=== PATIENT | male | born 1950 | race Caucasian/White ===

== ENCOUNTER 2020-05-08 09:33 | Day surgery (SDC) | payer OTHER ==
[2020-05-07 11:30] LABS: ALBUMIN 3.9 G/DL (3.4-5.0); ANION GAP 8 (8-16); BLOOD UREA NITROGEN 15 MG/DL (7-18); BUN/CREATININE RATIO 13.9 (5.4-32.0); CHLORIDE 105 MMOL/L (99-107); CREATININE 1.08 MG/DL (0.60-1.10); GLUCOSE 196 MG/DL (70-104); POTASSIUM 4.3 MMOL/L (3.5-5.1); SODIUM 141 MMOL/L (135-145); TOTAL CARBON DIOXIDE 27.7 MMOL/L (24-32); eGFR 67 ML/MIN
[2020-05-07 11:51] LABS: BASOPHILS # (AUTO) 0.1 X10'3 (0-0.2); EOSINOPHILS # (AUTO) 0.2 X10'3 (0-0.9); EOSINOPHILS % (AUTO) 2.3 % (0-6); HEMATOCRIT 43.5 % (42.0-52.0); LYMPHOCYTES # (AUTO) 2.5 X10'3 (1.1-4.8); LYMPHOCYTES % (AUTO) 30.3 % (21-51); MEAN CORPUSCULAR HEMOGLOBIN 31.6 PG (27.0-31.0); MEAN CORPUSCULAR HGB CONC 34.6 g/dL (33.0-36.5); MEAN CORPUSCULAR VOLUME 91.2 FL (78-98); MEAN PLATELET VOLUME 9.9 FL (7.4-10.4); MONOCYTES # (AUTO) 0.7 X10'3 (0-0.9); MONOCYTES % (AUTO) 8.1 % (2-12); NEUTROPHILS # (AUTO) 4.7 X10'3 (1.8-7.7); NEUTROPHILS % (AUTO) 58.3 % (42-75); PLATELET COUNT 148 X10'3 (140-440); RED BLOOD COUNT 4.77 X10'6 (4.70-6.10); RED CELL DISTRIBUTION WIDTH 13.5 % (11.5-14.5); WHITE BLOOD COUNT 8.1 X10'3 (4.5-11.0)
[2020-05-08] VITALS (15 sets, daily range): BP systolic 105–146; BP diastolic 64–81
[~2020-05-08] VITALS: Ht 177.8 cm; Wt 99.2 kg
[2020-05-08] MEDS ORDERED: amiodarone 150mg/dext, iso-os 100 ML IV ONE (09:55)
[2020-05-08] MEDS ORDERED: normal saline 1000ml 1,000 ML IV SCH (09:55)
[2020-05-08] MEDS ORDERED: MIDAZolam 1mg/ml 10ml vial IV ONE (09:55)
[2020-05-08] MEDS ORDERED: morphine 10mg/ml inj. IV ONE (09:55)
[2020-05-08] MEDS ORDERED: atropine 0.1mg/ml 10ml syringe IV ONE (09:55)
[2020-05-08] MEDS ORDERED: diphenhydrAMINE 25mg capsule PO ONE (09:55)
[2020-05-08] MEDS ORDERED: LORazepam 0.5 MG tablet PO ONE (09:55)
[2020-05-08] MEDS ORDERED: INSU100V37 SQ (10:08)
[2020-05-08] MEDS ORDERED: CYAN250014 PO (10:08)
[2020-05-08] MEDS ORDERED: ATOR40TA PO (10:08)
[2020-05-08] MEDS ORDERED: OMEG-133 PO (10:08)
[2020-05-08] MEDS ORDERED: OMEP40CA13 PO (10:08)
[2020-05-08] MEDS ORDERED: UBID100C16 PO (10:08)
[2020-05-08] MEDS ORDERED: LOSA25TA96 PO (10:08)
== END 2020-05-08 14:30 | disposition home or self-care (01) ==
LOC: SSTAY O 09:33
PROVIDERS: ATTEND Internal Medicine Cardiovascular Disease
DX: I48.0 Paroxysmal atrial fibrillation (principal); E11.9 Type 2 diabetes mellitus without complications; I10 Essential (primary) hypertension; E78.5 Hyperlipidemia, unspecified; F20.9 Schizophrenia, unspecified; F17.291 Nicotine dependence, other tobacco product, in remission; Z79.899 Other long term (current) drug therapy; Z86.19 Personal history of other infectious and parasitic diseases; Z82.49 Family history of ischemic heart disease and other diseases of the circulatory system
CPT/HCPCS: 36415; 80048; 82948; 85025; 92960; 93005; 94760; 94799; J2250; J2270; J7030

== ENCOUNTER 2020-09-04 09:09 | Emergency (ER) | payer OTHER, MEDICARE ==
[~2020-09-04] VITALS: Ht 177.8 cm; Wt 93.6 kg
[~2020-09-04 09:09] MED LIST: ATOR40TA PO; CYAN250014 PO; INSU100V37 SQ; LOSA25TA96 PO; OMEG-133 PO; OMEP40CA13 PO; UBID100C16 PO
--- NOTE | 2020-09-04 09:40 | NUR ---
Zachary, , cell phone # [phone]
--- NOTE | 2020-09-04 09:50 | NUR ---
Pt states symptoms are "exactly" the same as when he is in atrial fibrillation. Denies any new or differing symptoms.
[2020-09-04 09:52] LABS: BASOPHILS # (AUTO) 0.1 X10'3 (0-0.2); BASOPHILS % (AUTO) 0.9 % (0-1); EOSINOPHILS # (AUTO) 0.2 X10'3 (0-0.9); HEMATOCRIT 43.2 % (42.0-52.0); HEMOGLOBIN 15.1 g/dl (14.0-17.9); LYMPHOCYTES # (AUTO) 1.7 X10'3 (1.1-4.8); LYMPHOCYTES % (AUTO) 24.9 % (21-51); MEAN CORPUSCULAR HEMOGLOBIN 32.3 PG (27.0-31.0); MEAN CORPUSCULAR HGB CONC 34.9 g/dL (33.0-36.5); MEAN CORPUSCULAR VOLUME 92.4 FL (78-98); MEAN PLATELET VOLUME 10.2 FL (7.4-10.4); MONOCYTES # (AUTO) 0.6 X10'3 (0-0.9); MONOCYTES % (AUTO) 9.1 % (2-12); NEUTROPHILS # (AUTO) 4.3 X10'3 (1.8-7.7); NEUTROPHILS % (AUTO) 62.1 % (42-75); PLATELET COUNT 135 X10'3 (140-440); RED BLOOD COUNT 4.68 X10'6 (4.70-6.10); RED CELL DISTRIBUTION WIDTH 13.8 % (11.5-14.5); WHITE BLOOD COUNT 6.9 X10'3 (4.5-11.0)
[2020-09-04 10:04] LABS: PARTIAL THROMBOPLASTIN TIME 34 SECONDS (22-32)
[2020-09-04 10:06] LABS: ALANINE AMINOTRANSFERASE 22 U/L (12-78); ALBUMIN 3.9 G/DL (3.4-5.0); ALBUMIN/GLOBULIN RATIO 1.1 (1.1-1.5); ALKALINE PHOSPHATASE 51 IU/L (46-116); ANION GAP 9 (8-16); ASPARTATE AMINO TRANSFERASE 23 U/L (10-37); BLOOD UREA NITROGEN 13 MG/DL (7-18); BUN/CREATININE RATIO 12.9 (5.4-32.0); CALCIUM 9.1 MG/DL (8.5-10.1); CHLORIDE 105 MMOL/L (99-107); CREATININE 1.01 MG/DL (0.60-1.10); GLUCOSE 291 MG/DL (70-104); POTASSIUM 4.2 MMOL/L (3.5-5.1); SODIUM 141 MMOL/L (135-145); TOTAL PROTEIN 7.5 G/DL (6.4-8.2); eGFR 73 ML/MIN
[2020-09-04 10:13] LABS: MAGNESIUM 1.8 MG/DL (1.5-2.4)
[2020-09-04 10:27] LABS: D-DIMER 0.43 MG/L FEU (0-0.50)
[2020-09-04] MEDS ORDERED: midazolam 1 mg/ML 2ml injection IV ONE (10:40)
[2020-09-04] MEDS ORDERED: etomidate 2mg/ml inj. IV ONE (10:45)
[2020-09-04] MEDS ORDERED: fentaNYL/PF 50MCG/1 ML 2ML syringe IV PRN (10:45)
[2020-09-04] MEDS ORDERED: normal saline 1000ML IV soln IVB ONE (10:50)
[2020-09-04] MEDS ORDERED: normal saline 1000ml 1,000 ML IV ONE (10:50)
[2020-09-04 12:57] VITALS: BP 149/79
== END 2020-09-04 13:15 | disposition home or self-care (01) ==
LOC: ER 09:10
DX: I48.91 Unspecified atrial fibrillation (principal); R00.2 Palpitations; R06.02 Shortness of breath; R53.83 Other fatigue; E11.9 Type 2 diabetes mellitus without complications; F17.200 Nicotine dependence, unspecified, uncomplicated; Z98.890 Other specified postprocedural states; Z79.899 Other long term (current) drug therapy; Z79.4 Long term (current) use of insulin
CPT/HCPCS: 36415; 71045; 80053; 83735; 83880; 84443; 84484; 85025; 85379; 85610; 85730; 92960; 93005; 96361; 96374; 96375; 99291; J2250; J3010; J7030

== ENCOUNTER 2020-10-23 10:20 | Day surgery (SDC) | payer OTHER ==
[2020-10-22 12:29] LABS: BASOPHILS # (AUTO) 0.1 X10'3 (0-0.2); BASOPHILS % (AUTO) 1.1 % (0-1); EOSINOPHILS # (AUTO) 0.2 X10'3 (0-0.9); EOSINOPHILS % (AUTO) 2.7 % (0-6); HEMATOCRIT 43.3 % (42.0-52.0); HEMOGLOBIN 14.9 g/dl (14.0-17.9); LYMPHOCYTES # (AUTO) 1.8 X10'3 (1.1-4.8); LYMPHOCYTES % (AUTO) 24.5 % (21-51); MEAN CORPUSCULAR HEMOGLOBIN 32.5 PG (27.0-31.0); MEAN CORPUSCULAR HGB CONC 34.4 g/dL (33.0-36.5); MEAN CORPUSCULAR VOLUME 94.4 FL (78-98); MEAN PLATELET VOLUME 10.8 FL (7.4-10.4); MONOCYTES # (AUTO) 0.6 X10'3 (0-0.9); MONOCYTES % (AUTO) 8.3 % (2-12); NEUTROPHILS # (AUTO) 4.6 X10'3 (1.8-7.7); NEUTROPHILS % (AUTO) 63.4 % (42-75); PLATELET COUNT 143 X10'3 (140-440); RED BLOOD COUNT 4.58 X10'6 (4.70-6.10); WHITE BLOOD COUNT 7.2 X10'3 (4.5-11.0)
[2020-10-22 12:36] LABS: ANION GAP 6 (8-16); BLOOD UREA NITROGEN 20 MG/DL (7-18); CALCIUM 9.3 MG/DL (8.5-10.1); CHLORIDE 104 MMOL/L (99-107); CREATININE 1.05 MG/DL (0.60-1.10); GLUCOSE 227 MG/DL (70-104); POTASSIUM 5.4 MMOL/L (3.5-5.1); SODIUM 138 MMOL/L (135-145); TOTAL CARBON DIOXIDE 28.1 MMOL/L (24-32); eGFR 69 ML/MIN
[2020-10-22 12:38] LABS: PARTIAL THROMBOPLASTIN TIME 26 SECONDS (22-32)
[~2020-10-23] VITALS: Ht 175.3 cm; Wt 95.4 kg
[2020-10-23] VITALS (11 sets, daily range): BP systolic 115–161; BP diastolic 48–86
[2020-10-23] MEDS ORDERED: diphenhydrAMINE 25mg capsule PO PRN (11:20)
[2020-10-23] MEDS ORDERED: LORazepam 0.5 MG tablet PO PRN (11:20)
[2020-10-23] MEDS ORDERED: normal saline 1,000 ML IV SCH ×2 (11:20→13:15)
[2020-10-23] MEDS ORDERED: LIDOcaine/PRILOcaine 5gm cream TP ONE (11:35)
[2020-10-23] MEDS ORDERED: heparin 1,000unit/ml 10ml vial 10 ML ONE (11:43)
[2020-10-23] MEDS ORDERED: iohexol 350MG/ML 100ml bottle IV ONE (11:43)
[2020-10-23] MEDS ORDERED: nitroGLYCERIN-Tridil 50MG/D5W 250 ML IV ONE (11:43)
[2020-10-23] MEDS ORDERED: midazolam 1 mg/ML 2ml injection ONE (11:43)
[2020-10-23] MEDS ORDERED: fentaNYL/PF 50MCG/1 ML 2ML syringe ONE (11:43)
[2020-10-23] MEDS ORDERED: iohexol 350 MG/ML 50ML vial IV ONE (11:43)
[2020-10-23] MEDS ORDERED: verapamil 2.5 mg/ml inj IV ONE (11:43)
[2020-10-23] MEDS ORDERED: LIDOcaine 1% (10mg/ml)w/preservative injection 20ml MDV ONE (11:43)
[2020-10-23] MEDS ORDERED: AMLO5TAB PO (12:08)
== END 2020-10-23 17:38 | disposition home or self-care (01) ==
LOC: SSTAY O 10:20
PROVIDERS: ATTEND Internal Medicine Cardiovascular Disease
DX: R94.39 Abnormal result of other cardiovascular function study (principal); R06.02 Shortness of breath; R53.83 Other fatigue; I25.10 Atherosclerotic heart disease of native coronary artery without angina pectoris; I48.0 Paroxysmal atrial fibrillation; I10 Essential (primary) hypertension; E78.5 Hyperlipidemia, unspecified; E11.9 Type 2 diabetes mellitus without complications; F20.9 Schizophrenia, unspecified; Z96.651 Presence of right artificial knee joint; Z87.891 Personal history of nicotine dependence; Z98.890 Other specified postprocedural states; Z80.0 Family history of malignant neoplasm of digestive organs; Z82.49 Family history of ischemic heart disease and other diseases of the circulatory system
CPT/HCPCS: 36415; 76937; 80048; 82948; 85025; 85610; 85730; 93005; 93458; 99152; C1769; C1894; J1644; J2001; J2250; J3010; J7030; Q0163; Q9967; 99153; A4620; A5120; A6258; J3490

== ENCOUNTER 2021-11-20 06:51 | Day surgery (SDC) | payer MEDICARE ==
[2021-11-20] VITALS (9 sets, daily range): BP systolic 129–155; BP diastolic 64–97
[~2021-11-20] VITALS: Ht 177.8 cm; Wt 90.7 kg
[~2021-11-20 06:51] MED LIST changes: +AMLO5TAB PO; -OMEP40CA13 PO; +OMEP40CA21 PO
[2021-11-20] MEDS ORDERED: RIVA20TA PO (07:18)
[2021-11-20] MEDS ORDERED: ROSU20TA2 PO (07:18)
[2021-11-20] MEDS ORDERED: FLEC50TA28 PO (07:18)
--- NOTE | 2021-11-20 07:30 | NUR ---
I was shaving the patient and he all of a sudden got upset because he didn't think I needed to shave the top part of his chest. I explained to him where the pads would be placed and he got upset and told me to "get out of my room and leave me alone". I exited the room and allowed time for him to cool off. Flaquita went in and spoke with him and he was still upset. We were later able to finish prepping him but he was very short with his answers and we were unable to finish his full admission. Some assessments were deferred due to his mood (social questions and malnutrition).
[2021-11-20] MEDS ORDERED: morphine 10mg/ml inj. IV ONE (07:35)
[2021-11-20] MEDS ORDERED: normal saline 1000ml 1,000 ML IV SCH (07:35)
[2021-11-20] MEDS ORDERED: diphenhydrAMINE 25mg capsule PO ONE (07:35)
[2021-11-20] MEDS ORDERED: atropine 0.1mg/ml 10ml syringe IV ONE (07:35)
[2021-11-20] MEDS ORDERED: LORazepam 0.5 MG tablet PO ONE (07:35)
[2021-11-20] MEDS ORDERED: MIDAZolam 1mg/ml 10ml vial IV ONE (07:35)
[2021-11-20] MEDS ORDERED: amiodarone 150mg/dext, iso-os 100 ML IV ONE (07:35)
[2021-11-20 07:49] LABS: APTT 26 SECONDS (22-32)
[2021-11-20 07:53] LABS: ALBUMIN 4.7 G/DL (3.4-5.0); ANION GAP 9 (8-16); BASOPHILS # (AUTO) 0.1 X10'3 (0-0.2); BASOPHILS % (AUTO) 1.1 % (0-1); BLOOD UREA NITROGEN 14 MG/DL (7-18); BUN/CREATININE RATIO 12.7 (5.4-32.0); CALCIUM 9.4 MG/DL (8.5-10.1); CHLORIDE 101 MMOL/L (99-107); EOSINOPHILS # (AUTO) 0.2 X10'3 (0-0.9); EOSINOPHILS % (AUTO) 2.3 % (0-6); GLUCOSE 192 MG/DL (70-104); HEMATOCRIT 46.5 % (42.0-52.0); HEMOGLOBIN 16.3 g/dl (14.0-17.9); LYMPHOCYTES # (AUTO) 2.1 X10'3 (1.1-4.8); LYMPHOCYTES % (AUTO) 25.3 % (21-51); MEAN CORPUSCULAR HEMOGLOBIN 31.6 PG (27.0-31.0); MEAN CORPUSCULAR HGB CONC 35.2 g/dL (33.0-36.5); MEAN CORPUSCULAR VOLUME 89.8 FL (78-98); MEAN PLATELET VOLUME 9.5 FL (7.4-10.4); MONOCYTES # (AUTO) 0.8 X10'3 (0-0.9); MONOCYTES % (AUTO) 9.8 % (2-12); NEUTROPHILS # (AUTO) 5.1 X10'3 (1.8-7.7); NEUTROPHILS % (AUTO) 61.5 % (42-75); PLATELET COUNT 153 X10'3 (140-440); POTASSIUM 4.3 MMOL/L (3.5-5.1); RED BLOOD COUNT 5.18 X10'6 (4.70-6.10); RED CELL DISTRIBUTION WIDTH 13.3 % (11.5-14.5); SODIUM 137 MMOL/L (135-145); TOTAL CARBON DIOXIDE 26.9 MMOL/L (24-32); WHITE BLOOD COUNT 8.3 X10'3 (4.5-11.0); eGFR 66 ML/MIN
== END 2021-11-20 10:30 | disposition home or self-care (01) ==
LOC: SSTAY O 06:51
PROVIDERS: ATTEND Internal Medicine Cardiovascular Disease
DX: I48.19 Other persistent atrial fibrillation (principal); E11.9 Type 2 diabetes mellitus without complications; I10 Essential (primary) hypertension; E78.5 Hyperlipidemia, unspecified; I25.10 Atherosclerotic heart disease of native coronary artery without angina pectoris; F20.9 Schizophrenia, unspecified; E66.9 Obesity, unspecified; Z68.30 Body mass index [BMI] 30.0-30.9, adult; Z86.19 Personal history of other infectious and parasitic diseases; Z87.891 Personal history of nicotine dependence; Z98.890 Other specified postprocedural states; Z96.651 Presence of right artificial knee joint; Z82.49 Family history of ischemic heart disease and other diseases of the circulatory system; Z80.0 Family history of malignant neoplasm of digestive organs
CPT/HCPCS: 36415; 80048; 82948; 85025; 85610; 85730; 92960; 93005; 94760; 94799; J2250; J2274; J7030; A4620

== ENCOUNTER 2022-01-29 06:54 | Day surgery (SDC) | payer OTHER ==
[~2022-01-29] VITALS: Ht 177.8 cm; Wt 89.1 kg
[2022-01-29] VITALS (13 sets, daily range): BP systolic 101–144; BP diastolic 62–96
[~2022-01-29 06:54] MED LIST changes: -ATOR40TA PO; +FLEC50TA28 PO; -OMEP40CA21 PO; +RIVA20TA PO; +ROSU20TA2 PO
[2022-01-29] MEDS ORDERED: OMEP40CA21 PO (07:20)
[2022-01-29] MEDS ORDERED: diphenhydrAMINE 25mg capsule PO ONE (07:35)
[2022-01-29] MEDS ORDERED: atropine 0.1mg/ml 10ml syringe IV ONE (07:35)
[2022-01-29] MEDS ORDERED: LORazepam 0.5 MG tablet PO ONE (07:35)
[2022-01-29] MEDS ORDERED: amiodarone 150mg/dext, iso-os 100 ML IV ONE (07:35)
[2022-01-29] MEDS ORDERED: MIDAZolam 1mg/ml 10ml vial IV ONE (07:35)
[2022-01-29] MEDS ORDERED: morphine 10mg/ml inj. IV ONE (07:35)
[2022-01-29 09:03] LABS: ANION GAP 15 (8-16); BLOOD UREA NITROGEN 16 MG/DL (7-18); BUN/CREATININE RATIO 14.4 (5.4-32.0); CALCIUM 9.5 MG/DL (8.5-10.1); CHLORIDE 102 MMOL/L (99-107); CREATININE 1.11 MG/DL (0.60-1.10); GLUCOSE 176 MG/DL (70-104); POTASSIUM 4.5 MMOL/L (3.5-5.1); SODIUM 141 MMOL/L (135-145); TOTAL CARBON DIOXIDE 24.5 MMOL/L (24-32); eGFR 65 ML/MIN
[2022-01-29 09:05] LABS: BASOPHILS # (AUTO) 0.1 X10'3 (0-0.2); BASOPHILS % (AUTO) 0.9 % (0-1); EOSINOPHILS # (AUTO) 0.2 X10'3 (0-0.9); EOSINOPHILS % (AUTO) 1.6 % (0-6); HEMATOCRIT 50.3 % (42.0-52.0); HEMOGLOBIN 17.5 g/dl (14.0-17.9); LYMPHOCYTES # (AUTO) 3.3 X10'3 (1.1-4.8); MEAN CORPUSCULAR HEMOGLOBIN 30.8 PG (27.0-31.0); MEAN CORPUSCULAR HGB CONC 34.7 g/dL (33.0-36.5); MEAN CORPUSCULAR VOLUME 88.7 FL (78-98); MEAN PLATELET VOLUME 9.4 FL (7.4-10.4); MONOCYTES # (AUTO) 0.8 X10'3 (0-0.9); MONOCYTES % (AUTO) 7.7 % (2-12); NEUTROPHILS % (AUTO) 57.8 % (42-75); PLATELET COUNT 190 X10'3 (140-440); RED BLOOD COUNT 5.67 X10'6 (4.70-6.10); RED CELL DISTRIBUTION WIDTH 13.5 % (11.5-14.5); WHITE BLOOD COUNT 10.3 X10'3 (4.5-11.0)
== END 2022-01-29 11:18 | disposition home or self-care (01) ==
LOC: SSTAY O 06:54
PROVIDERS: ATTEND Internal Medicine Cardiovascular Disease
DX: I48.0 Paroxysmal atrial fibrillation (principal); I10 Essential (primary) hypertension; E11.9 Type 2 diabetes mellitus without complications; E78.5 Hyperlipidemia, unspecified; I25.10 Atherosclerotic heart disease of native coronary artery without angina pectoris; Z79.899 Other long term (current) drug therapy; Z98.890 Other specified postprocedural states; E66.01 Morbid (severe) obesity due to excess calories; F20.9 Schizophrenia, unspecified; Z82.49 Family history of ischemic heart disease and other diseases of the circulatory system; Z96.651 Presence of right artificial knee joint; Z96.641 Presence of right artificial hip joint
CPT/HCPCS: 36415; 80048; 85025; 92960; 93005; 94760; 94799; J0282; J2250; J2274; J7030; Q0163; A4620

== ENCOUNTER 2022-04-01 12:05 | Day surgery (SDC) | payer MEDICARE ==
[~2022-04-01] VITALS: Ht 177.8 cm; Wt 91.5 kg
[2022-04-01] VITALS (10 sets, daily range): BP systolic 104–154; BP diastolic 53–96
[~2022-04-01 12:05] MED LIST changes: +OMEP40CA21 PO
[2022-04-01] MEDS ORDERED: morphine 10mg/ml inj. IV ONE (12:30)
[2022-04-01] MEDS ORDERED: atropine 0.1mg/ml 10ml syringe IV ONE (12:30)
[2022-04-01] MEDS ORDERED: diphenhydrAMINE 25mg capsule PO ONE (12:30)
[2022-04-01] MEDS ORDERED: MIDAZolam 1mg/ml 10ml vial IV ONE (12:30)
[2022-04-01] MEDS ORDERED: LORazepam 0.5 MG tablet PO ONE (12:30)
[2022-04-01] MEDS ORDERED: amiodarone 150mg/dext, iso-os 100 ML IV ONE (12:30)
[2022-04-01 13:12] LABS: BASOPHILS # (AUTO) 0.1 X10'3 (0-0.2); BASOPHILS % (AUTO) 0.9 % (0-1); EOSINOPHILS # (AUTO) 0.2 X10'3 (0-0.9); EOSINOPHILS % (AUTO) 2.1 % (0-6); HEMATOCRIT 42.3 % (42.0-52.0); HEMOGLOBIN 14.5 g/dl (14.0-17.9); LYMPHOCYTES # (AUTO) 2.7 X10'3 (1.1-4.8); LYMPHOCYTES % (AUTO) 30.4 % (21-51); MEAN CORPUSCULAR HGB CONC 34.2 g/dL (33.0-36.5); MEAN CORPUSCULAR VOLUME 90.5 FL (78-98); MEAN PLATELET VOLUME 9.1 FL (7.4-10.4); MONOCYTES # (AUTO) 0.7 X10'3 (0-0.9); MONOCYTES % (AUTO) 8.2 % (2-12); NEUTROPHILS # (AUTO) 5.3 X10'3 (1.8-7.7); NEUTROPHILS % (AUTO) 58.4 % (42-75); PLATELET COUNT 145 X10'3 (140-440); RED BLOOD COUNT 4.67 X10'6 (4.70-6.10); RED CELL DISTRIBUTION WIDTH 13.9 % (11.5-14.5)
[2022-04-01 13:20] LABS: ANION GAP 10 (8-16); BLOOD UREA NITROGEN 14 MG/DL (7-18); BUN/CREATININE RATIO 14.4 (5.4-32.0); CALCIUM 8.9 MG/DL (8.5-10.1); CHLORIDE 105 MMOL/L (99-107); CREATININE 0.97 MG/DL (0.60-1.10); GLUCOSE 229 MG/DL (70-104); POTASSIUM 4.4 MMOL/L (3.5-5.1); SODIUM 139 MMOL/L (135-145); TOTAL CARBON DIOXIDE 24.5 MMOL/L (24-32); eGFR 76 ML/MIN
== END 2022-04-01 15:20 | disposition home or self-care (01) ==
LOC: SSTAY O 12:05
PROVIDERS: ATTEND Internal Medicine Cardiovascular Disease
DX: I48.0 Paroxysmal atrial fibrillation (principal); I10 Essential (primary) hypertension; E78.5 Hyperlipidemia, unspecified; I25.10 Atherosclerotic heart disease of native coronary artery without angina pectoris; J44.9 Chronic obstructive pulmonary disease, unspecified; Z79.899 Other long term (current) drug therapy; Z98.890 Other specified postprocedural states
CPT/HCPCS: 36415; 80048; 85025; 92960; 93005; J0282; J2250; J2274; J7030; Q0163; A4620

== ENCOUNTER 2022-09-02 08:16 | Day surgery (SDC) | payer MEDICARE, OTHER ==
[~2022-09-02] VITALS: Ht 175.3 cm; Wt 95.0 kg
[2022-09-02] VITALS (11 sets, daily range): BP systolic 79–154; BP diastolic 51–105
[2022-09-02] MEDS ORDERED: amiodarone 150mg/dext, iso-os 100 ML IV ONE (08:55)
[2022-09-02] MEDS ORDERED: diphenhydrAMINE 25mg capsule PO ONE (08:55)
[2022-09-02] MEDS ORDERED: morphine 10mg/ml inj. IV ONE (08:55)
[2022-09-02] MEDS ORDERED: MIDAZolam 1mg/ml 10ml vial IV ONE (08:55)
[2022-09-02] MEDS ORDERED: normal saline 1000ml 1,000 ML IV SCH (08:55)
[2022-09-02] MEDS ORDERED: atropine 0.1mg/ml 10ml syringe IV ONE (08:55)
[2022-09-02] MEDS ORDERED: LORazepam 0.5 MG tablet PO ONE (08:55)
[2022-09-02] MEDS ORDERED: AMIO200T62 PO (09:13)
== END 2022-09-02 11:45 | disposition home or self-care (01) ==
LOC: SSTAY O 08:16
PROVIDERS: ATTEND Internal Medicine Cardiovascular Disease
DX: I48.0 Paroxysmal atrial fibrillation (principal); I25.10 Atherosclerotic heart disease of native coronary artery without angina pectoris; I10 Essential (primary) hypertension; E78.5 Hyperlipidemia, unspecified; E11.9 Type 2 diabetes mellitus without complications; E66.9 Obesity, unspecified; Z68.31 Body mass index [BMI] 31.0-31.9, adult; B19.20 Unspecified viral hepatitis C without hepatic coma; F20.9 Schizophrenia, unspecified; Z79.4 Long term (current) use of insulin; Z79.899 Other long term (current) drug therapy; Z98.890 Other specified postprocedural states; Z96.651 Presence of right artificial knee joint; Z82.49 Family history of ischemic heart disease and other diseases of the circulatory system; Z80.0 Family history of malignant neoplasm of digestive organs
CPT/HCPCS: 92960; 93005; J2250; J2274; J7030; Q0163; A4620

== ENCOUNTER 2023-11-02 05:54 | Day surgery (SDC) | payer OTHER ==
[~2023-11-02] VITALS: Ht 177.8 cm; Wt 92.2 kg
[2023-11-02] VITALS (12 sets, daily range): BP systolic 121–154; BP diastolic 47–80; PULSE 60–81; RESP 11–20; TEMP 97.5; O2SAT 96–99
[~2023-11-02 05:54] MED LIST changes: +AMIO200T72 PO; -FLEC50TA28 PO; +LOSA-415 PO; -LOSA25TA96 PO; +iohexol 300 MG/1 ML 50ml polymer ONE
[2023-11-02] MEDS ORDERED: ceFAZolin 2,000MG in D5W 100mL IV ONE (06:25)
[2023-11-02 06:53] LABS: BASOPHILS # (AUTO) 0.1 X10'3 (0-0.2); BASOPHILS % (AUTO) 0.9 % (0-1); EOSINOPHILS # (AUTO) 0.2 X10'3 (0-0.9); EOSINOPHILS % (AUTO) 2.8 % (0-6); HEMOGLOBIN 14.7 g/dl (14.0-17.9); LYMPHOCYTES # (AUTO) 2.5 X10'3 (1.1-4.8); LYMPHOCYTES % (AUTO) 29.1 % (21-51); MEAN CORPUSCULAR HEMOGLOBIN 32.3 PG (27.0-31.0); MEAN CORPUSCULAR VOLUME 92.3 FL (78-98); MEAN PLATELET VOLUME 9.2 FL (7.4-10.4); MONOCYTES # (AUTO) 0.7 X10'3 (0-0.9); MONOCYTES % (AUTO) 8.6 % (2-12); NEUTROPHILS # (AUTO) 5.1 X10'3 (1.8-7.7); NEUTROPHILS % (AUTO) 58.6 % (42-75); PLATELET COUNT 136 X10'3 (140-440); RED BLOOD COUNT 4.56 X10'6 (4.70-6.10); RED CELL DISTRIBUTION WIDTH 13.8 % (11.5-14.5); WHITE BLOOD COUNT 8.7 X10'3 (4.5-11.0)
[2023-11-02 07:05] LABS: ALBUMIN 3.9 G/DL (3.4-5.0); ANION GAP 8 (8-16); BLOOD UREA NITROGEN 13 MG/DL (7-18); BUN/CREATININE RATIO 11.4 (10.0-20.0); CALCIUM 8.8 MG/DL (8.5-10.1); CHLORIDE 104 MMOL/L (99-107); CREATININE 1.14 MG/DL (0.60-1.10); GLUCOSE 322 MG/DL (70-104); SODIUM 136 MMOL/L (135-145); TOTAL CARBON DIOXIDE 24.1 MMOL/L (24-32); eCRCL 58 ML/MIN; eGFR 63 ML/MIN
[2023-11-02] MEDS ORDERED: DORZ10DR10 RIGHTEYE (07:24)
[2023-11-02] MEDS ORDERED: DORZ10DR10 LEFTEYE (07:24)
[2023-11-02] MEDS ORDERED: VITC500T PO (07:24)
[2023-11-02] MEDS ORDERED: CARB15DR LEFTEYE (07:24)
[2023-11-02] MEDS ORDERED: CARB15DR RIGHTEYE (07:24)
[2023-11-02] MEDS ORDERED: OXYC5CAP22 PO (07:24)
[2023-11-02] MEDS ORDERED: midazolam 1 mg/ML 2ml injection ONE ×2 (07:32→08:50)
[2023-11-02] MEDS ORDERED: LIDOcaine 1% W/epiNEPHrine 1:100,000 20ml vial ONE (07:33)
[2023-11-02] MEDS ORDERED: fentaNYL/PF 50MCG/1 ML 2ML syringe ONE (07:33)
[2023-11-02] MEDS ORDERED: ceFAZolin 1000mg inj ONE (07:34)
[2023-11-02 07:55] LABS: APTT 25 SECONDS (22-32); INR 1.1 INR; PROTHROMBIN TIME 11.2 SECONDS (9.0-12.0)
[2023-11-02] MEDS ORDERED: diphenhydrAMINE 50 mg/ml inj ONE (08:49)
[2023-11-02] MEDS ORDERED: HYDROcodone/acetaminophen 5mg/325mg tablet PO PRN (10:25)
[2023-11-02] MEDS: HYDROcodone/acetaminophen 10/325mg tab PO PRN (10:46)
[2023-11-02] MEDS: vancomycin/NS 1 GM ADD-VANTAGE 250 ML IV ONE (10:46)
== END 2023-11-02 14:55 | disposition home or self-care (01) ==
LOC: SSTAY O 05:54
PROVIDERS: ATTEND Internal Medicine Cardiovascular Disease
DX: I49.5 Sick sinus syndrome (principal); I48.0 Paroxysmal atrial fibrillation; I44.7 Left bundle-branch block, unspecified; I25.10 Atherosclerotic heart disease of native coronary artery without angina pectoris; I11.9 Hypertensive heart disease without heart failure; E11.9 Type 2 diabetes mellitus without complications; E78.5 Hyperlipidemia, unspecified; E66.9 Obesity, unspecified; F20.9 Schizophrenia, unspecified; Z79.01 Long term (current) use of anticoagulants; Z79.899 Other long term (current) drug therapy; Z96.651 Presence of right artificial knee joint; Z98.890 Other specified postprocedural states; Z68.29 Body mass index [BMI] 29.0-29.9, adult; Z82.49 Family history of ischemic heart disease and other diseases of the circulatory system; Z80.9 Family history of malignant neoplasm, unspecified
CPT/HCPCS: 33208; 36415; 71046; 80048; 85025; 85610; 85730; 92960; 93005; 99152; 99153; C1785; C1898; J0690; J1200; J2250; J3010; J3370; J3490; J7030; Q9967; A6449